=== PATIENT | female | born 1975 | race Caucasian/White ===

== ENCOUNTER 2018-03-06 08:04 | Inpatient (IN) | payer MEDICARE, OTHER ==
[2018-03-06] MEDS ORDERED: DEXAMETHASONE SOD PHOS 4 MG/ML VIAL ONE (09:00)
[2018-03-06] MEDS ORDERED: SODIUM CHLORIDE IRRIG SOLUTION 1,000 ML IR ONE (09:00)
[2018-03-06] MEDS ORDERED: LIDOCAINE HCL/PF 2% 100 MG/5 ML VIAL IJ ONE (09:00)
[2018-03-06] MEDS ORDERED: SUGAMMADEX 200 mg/2mL 200 MG/2 ML VIAL IV ONE (09:00)
[2018-03-06] MEDS ORDERED: ROCURONIUM BROMIDE 10 MG/ML 5ML VIAL ONE (09:00)
[2018-03-06] MEDS ORDERED: LACTATED RINGERS 1,000 ML IV.SOLN IV ONE ×2 (09:00)
[2018-03-06] MEDS ORDERED: SEVOFLURANE 250 ML LIQUID IH ONE ×2 (09:00)
[2018-03-06] MEDS ORDERED: PROPOFOL 200 MG/20 ML VIAL IV ONE (09:00)
[2018-03-06] MEDS ORDERED: ceFAZolin SODIUM 1 GM VIAL ONE (09:00)
[2018-03-06] MEDS ORDERED: BUPIVACAINE HCL 0.25%/EPI. PF 30 ML VIAL IJ ONE (09:00)
[2018-03-06] MEDS ORDERED: Lidocaine 1% PF 30ml 10 MG/ML VIAL ONE (09:00)
[2018-03-06] MEDS ORDERED: ONDANSETRON HCL/PF 4 MG/ 2ML VIAL ONE ×2 (09:00)
[2018-03-06] MEDS ORDERED: KETOROLAC TROMETHAMINE 30 MG/1ML VIAL ONE (09:00)
[2018-03-06] MEDS ORDERED: ENOXAPARIN SODIUM 40 MG/0.4 ML DISP.SYRIN SQ ONE (09:00)
[2018-03-06] MEDS ORDERED: PROMETHAZINE HCL 25 MG/ML VIAL ONE (09:00)
[2018-03-06] MEDS ORDERED: fentaNYL CITRATE/PF 100 MCG/ 2ML AMP ONE (10:00)
[2018-03-06] MEDS ORDERED: MIDAZOLAM HCL 2 MG/2 ML VIAL ONE (10:00)
[2018-03-06] MEDS ORDERED: KETOROLAC TROMETHAMINE 30 MG/1ML VIAL IVP PRN (13:39)
[2018-03-06] MEDS ORDERED: diphenhydrAMINE HCL 50 MG/ML VIAL IVP PRN (13:39)
[2018-03-06] MEDS ORDERED: DISP SYRIN IM ONE (13:39)
[2018-03-06] MEDS ORDERED: ACETAMINOPHEN 1,000 MG/100 ML INJ IV PRN (13:39)
[2018-03-06] MEDS ORDERED: [UNRECOGNIZED DRUG - OTHER] IM ONE (13:39)
[2018-03-06] MEDS ORDERED: PROMETHAZINE HCL 25 MG in 0.9 % SODIUM CHLORIDE 50 ML IV PRN (13:39)
[2018-03-06] MEDS ORDERED: ONDANSETRON HCL/PF 4 MG/ 2ML VIAL IVP PRN (13:39)
[2018-03-06] MEDS ORDERED: LEVALBUTEROL HCL 1.25 MG/3 ML AMPUL.NEB NEB PRN (13:39)
[2018-03-06 13:51] VITALS: BMI 50.1
[2018-03-06] MEDS: fentaNYL CITRATE/PF 100 MCG/ 2ML AMP IVP PRN ×3 (14:14→22:10)
[2018-03-06] MEDS: INSULIN LISPRO 100 UNIT/ML 3ML VIAL SQ SCH ×2 (14:31→22:13)
--- NOTE | 2018-03-06 15:11 | History and Physical Report ---
History of Present Illnes - History of Present Illness Reason for Visit: Obesity History of Present Illness: Patient has gastric sleeve performed today. She will be admitted to [facility] for IVF and IV pain management. Surgery went well. - Past Medical History Cardiac: Hyperlipidemia ADMINISTRATION ASSISTANT: Migraine Psych: Other (PTSD; Personality disorder) Endocrine: Diabetes, Other (Morbid obesity) - Past Surgical History Past Surgical History: Tubal Ligation - Past Family History Mother Family History: Cancer, DM, Brother 1 Family History: CVA - Past Social History Smoke: Quit Alcohol: None Drugs: Marijuana (prn) Lives: With Family - Health Maintenance Health Maintenance: Cholesterol Influenza Vaccine: No Pneumonia Vaccine: No Resuscitation Status: Resusciation Status Resuscitation Status Full Code Review of Systems - Review of Systems Constitutional: negative: Fever, Weakness Eyes: negative: pain ENT: negative: Nose Discharge, Mouth Pain Respiratory: negative: Cough, Shortness of Breath Cardiovascular: negative: Chest Pain Gastrointestinal: Abdominal Pain. negative: Nausea, Vomiting Genitourinary: negative: Dysuria Musculoskeletal: negative: Neck Pain Skin: negative: Rash Neurological: negative: Weakness - Medications/Allergies Allergies/Adverse Reactions: Allergies Allergy/AdvReac Type Severity Reaction Status Date / Time No Known Allergies Allergy Unverified 03/06/18 13:05 Home Medications: Home Medications Cetirizine HCl [24Hour Allergy] 10 mg PO DAILY 03/06/18 Glipizide 5 mg PO DAILY 03/06/18 Metformin HCl [Glucophage] 1,000 mg PO BID 03/06/18 Prazosin HCl [Minipress] 2 mg PO HS 03/06/18 Current Inpatient Medications: Current Inpatient Medications Acetaminophen (Ofirmev) 1,000 mg IV Q6H PRN PRN Reason: For Mild Breakthrough Pain Stop: 03/10/18 13:38 Cefazolin Sodium (Ancef) 1 gm IV Q8 ANNETTE Stop: 03/06/18 21:01 Diphenhydramine HCl (Benadryl) 25 mg IVP Q6H PRN PRN Reason: Sleeping and Itching Stop: 03/10/18 13:38 Famotidine (Pepcid) 20 mg IVP BID ANNETTE Stop: 03/10/18 20:59 Fentanyl Citrate (Duragesic) 50 mcg IVP Q2H PRN PRN Reason: Severe Pain Stop: 03/10/18 13:38 Last Admin: 03/06/18 14:14 Dose: 50 mcg Sodium Chloride (Normal Saline) 1,000 mls @ 150 mls/hr IV Q8H ANNETTE Promethazine HCl 25 mg/ Sodium (Chloride) 51 mls @ 600 mls/hr IV Q6 PRN PRN Reason: Nausea / Vomiting Stop: 03/10/18 13:38 Insulin Human Lispro (Humalog) 0 unit SQ Q6H [facility]; Protocol Last Admin: 03/06/18 14:31 Dose: 4 units Ketorolac Tromethamine (Toradol) 30 mg IVP Q6 PRN PRN Reason: For Mild Pain Stop: 03/10/18 13:38 Levalbuterol HCl (Xopenex) 1.25 mg NEB Q4 PRN PRN Reason: SOA, Dyspnea, or Wheezing Stop: 03/10/18 13:38 Miscellaneous (Chem Sticks) 1 each MC Q6H [facility] Last Admin: 03/06/18 14:22 Dose: 1 each Miscellaneous (Prazosin Hcl [Minipress]) 2 mg PO HS [facility] Morphine Sulfate (Depodur) 2 mg IVP Q2 PRN PRN Reason: MODERATE PAIN Stop: 03/10/18 13:38 Ondansetron HCl (Zofran 4 Mg/2 Ml) 4 mg IVP Q6H PRN PRN Reason: Nausea / Vomiting Stop: 03/10/18 13:38 Exam - Exam Vital Signs: Vital Signs (72 hours) 03/06/18 03/06/18 13:04 13:40 Temperature 96.6 F L Pulse Rate [ 87 Pulse ox] Respiratory 16 Rate Blood Pressure 153/92 [Right Arm] O2 Sat by Pulse 97 92 Oximetry General: Alert, Oriented to Person, Oriented to Place, Oriented to Time, Cooperative, No acute distress HEENT: Atraumatic, PERRLA, EOMI, Mouth Mucous membr. moist/[place], Nose Mucous membr. moist/[place] Neck: Normal Range of Motion Lungs: Clear to auscultation, Normal air movement, Speaks full Sentences Cardiovascular: Regular rate, Normal S1 Abdomen: Normal bowel sounds, Soft. No: No tenderness (MIld tender diffusely) Integumentary: Normal Extremities: No edema Neurological: Normal gait, Normal speech, Strength Equal Bilat, Normal tone Psych/Mental Status: Mental status NL, Mood NL, Appropriate Affect, Intact Judgment - Laboratory Results Laboratory Results: Laboratory Results 03/06/18 Unknown Urine HCG, Qual Negative Assessment/Plan - Assessment/Plan (1) Morbid obesity Status: Acute Current Visit: Yes (2) Diabetes Status: Acute Current Visit: Yes Qualifiers: Diabetes mellitus type: type 2 Diabetes mellitus penitentiary insulin use: with penitentiary use Diabetes mellitus complication status: without complication Qualified Code(s): E11.9 - Type 2 diabetes mellitus without complications; Z79.4 - joint terminal attack controller (current) use of insulin Plan: Will hold tresiba for now. SSI and accuchecks. (3) S/P gastric surgery Status: Acute Current Visit: Yes Plan: Patient will be admitted for IVF. SCD and lovenox for DVT prevention. IV pain meds x 24 hours then try to transition over to oral. CLD and advance to FLD as tolerated tomorrow. Crush meds. [id number] IV. (4) PTSD (post-traumatic stress disorder) Status: Chronic Current Visit: No Plan: Continue medications. VTE Assessment - RISK FACTOR SCORE VTE RISK FACTOR SCORES: AGE 40-60 YEARS, MAJOR SURGERY/ANESTHESIA TIME > 1 HOUR - RISK VTE MODERATE RISK: SCORE OF 2 (RISK PROXIMAL DVT 2-4%) PROPHYAXIS NEEDED
[2018-03-06] MEDS: 0.9 % SODIUM CHLORIDE 1,000 ML IV SCH (15:27)
[2018-03-06] MEDS: ceFAZolin SODIUM 1 GM VIAL IV SCH (17:58)
[2018-03-06] MEDS ORDERED: 0.9 % SODIUM CHLORIDE 50 ML IV ONE (22:01)
[2018-03-06] MEDS: FAMOTIDINE/PF 20 MG/2 ML VIAL IVP SCH (22:10)
[2018-03-06] MEDS: PRAZOSIN HCL 2 MG PO SCH (22:15)
[2018-03-07] MEDS: MORPHINE SULFATE 4 MG/ML PREFILLED SYR IVP PRN ×2 (00:04→04:58)
[2018-03-07] MEDS ORDERED: 0.9 % SODIUM CHLORIDE 50 ML IV ONE ×2 (00:05→20:52)
[2018-03-07] MEDS: 0.9 % SODIUM CHLORIDE 1,000 ML IV SCH ×3 (01:30→15:13)
[2018-03-07] MEDS: ceFAZolin SODIUM 1 GM VIAL IV SCH (01:33)
[2018-03-07] MEDS: INSULIN LISPRO 100 UNIT/ML 3ML VIAL SQ SCH ×4 (04:56→18:43)
--- NOTE | 2018-03-07 09:37 | Inpatient Progress Note ---
Subjective - Required Recertification Statement I anticipate X number of days because-include discharge plan: 1 - Review of Systems Subjective: Patient doing well. Tolerating clears. Objective - Exam Vitals and I&O: Vital Signs Temp 98.6 F 03/07/18 03:30 Pulse 94 H 03/07/18 05:15 Resp 18 03/07/18 05:15 BP 124/71 03/07/18 03:30 Pulse Ox 97 03/07/18 05:14 Intake & Output 03/06/18 03/06/18 03/07/18 11:59 23:59 11:59 Intake Total 2490 2195 Output Total 325 Balance 2165 2195 Weight 124.284 kg Intake: IV 2049 1900 left wrist 2049 1900 Oral 440 295 Output: Urine 325 Other: # Voids 2 1 General: Alert, Oriented to Person, Oriented to Place, Oriented to Time, Cooperative, No acute distress Lungs: Clear to auscultation, Normal air movement, Speaks full Sentences Cardiovascular: Regular rate, Normal S1 Abdomen: Normal bowel sounds, Soft. No: No tenderness (Mild tender. Bandages C/D/I) - Results Results: Laboratory Results Urine HCG, Qual Negative (NEGATIVE) 03/06/18 Unknown Assessment/Plan - Assessment/Plan (1) Morbid obesity Status: Acute Current Visit: Yes Plan: Advance to full liquids. D/C IV pain meds. (2) Diabetes Status: Acute Current Visit: Yes Qualifiers: Diabetes mellitus type: type 2 Diabetes mellitus terminal makeup operator insulin use: wi th terminal makeup operator use Diabetes mellitus complication status: without complication Qualified Code(s): E11.9 - Type 2 diabetes mellitus without complications; Z79.4 - terminal makeup operator (current) use of insulin Plan: Start 10 units basaglar. Watch BS. (3) S/P gastric surgery Status: Acute Current Visit: Yes (4) PTSD (post-traumatic stress disorder) Status: Chronic Current Visit: No
[2018-03-07] MEDS: FAMOTIDINE/PF 20 MG/2 ML VIAL IVP SCH ×2 (09:58→21:31)
[2018-03-07] MEDS ORDERED: INSULIN GLARGINE,HUM.REC.ANLOG 100 UNIT/ML PEN.INJCTR SQ ONE (10:00)
[2018-03-07] MEDS: INSULIN DETEMIR 100 UNIT/ML 3ML PEN.INJCTR SQ SCH ×2 (10:06→21:18)
[2018-03-07] MEDS: HYDROCODONE/ACETAMINOPHEN 15 ML SOLUTION PO PRN (21:17)
[2018-03-07] MEDS: PRAZOSIN HCL 2 MG PO SCH (21:31)
[2018-03-08] MEDS: 0.9 % SODIUM CHLORIDE 1,000 ML IV SCH ×2 (01:39→08:24)
[2018-03-08] MEDS: INSULIN LISPRO 100 UNIT/ML 3ML VIAL SQ SCH ×2 (03:34→08:25)
[2018-03-08] MEDS: HYDROCODONE/ACETAMINOPHEN 15 ML SOLUTION PO PRN ×2 (03:44→08:22)
[2018-03-08] MEDS ORDERED: 0.9 % SODIUM CHLORIDE 50 ML IV ONE (08:16)
[2018-03-08] MEDS: FAMOTIDINE/PF 20 MG/2 ML VIAL IVP SCH (08:23)
--- NOTE | 2018-03-08 08:28 | Discharge Summary ---
Discharge Summary - Discharge Sumary History of Present Illness: Patient has gastric sleeve performed today. She will be admitted to [facility] for IVF and IV pain management. Surgery went well. Condition at Discharge: Stable Home Medications: Ambulatory Orders Medication Instructions Recorded Cetirizine HCl [24Hour Allergy] 10 mg PO DAILY 03/06/18 Hydrocodone/Acetaminophen 10 ml PO Q6 PRN #250 solution 03/07/18 [Hydrocodone-Acetamn 7.5-325/15] Promethazine HCl [Phenergan] 12.5 mg PO Q6 PRN #280 ml 03/07/18 Consultations this Visit: None Procedures this Visit: Other (Sleeve gastrectomy) Allergies/Adverse Reactions: Allergies Allergy/AdvReac Type Severity Reaction Status Date / Time No Known Allergies Allergy Unverified 03/06/18 13:05 Discharge Summary: Patient underwent uncomplicated sleeve gastrectomy. He was transitioned from CLD to FLD without incident. He was also transitioned from IV pain meds to po pain meds. Ambulating, IS, Lovenox, SCD for prevention. Her BS ran 170-200 off Tresiba so she was sent home on 15 units instead of her home 31. She will monitor BS and keep in contact with PCP. Patient was discharged home in good condition to follow-up with surgery and PCP in the next 1-2 weeks. Hospital Course: Discharge Dx: Morbid obesity -s/p sleeve gastrectomy. DM. Dispsition -Home
[2018-03-08 13:15] VITALS: BP 113/55
== END 2018-03-08 11:00 | disposition home or self-care (01) | DRG 621 ==
LOC: OPSURG 08:04 → SOUTH 12:30
PROVIDERS: ADMIT Family Medicine; ATTEND Family Medicine
DX: E66.01 Morbid (severe) obesity due to excess calories (principal); Z68.43 Body mass index [BMI] 50.0-59.9, adult; Z98.84 Bariatric surgery status; E11.9 Type 2 diabetes mellitus without complications; E78.5 Hyperlipidemia, unspecified; F43.10 Post-traumatic stress disorder, unspecified; X58.XXXA Exposure to other specified factors, initial encounter
CPT/HCPCS: 43235; 81025; 99222; 99231; 99238; J0690; J1100; J1650; J1815; J1885; J2001; J2250; J2270; J2405; J2550; J2704; J3010; S0028; 43775; A9270-GY; J7030; J7120